=== PATIENT | female | born 1955 | race Caucasian/White ===

== ENCOUNTER 2019-07-16 19:44 | Emergency (ER) | payer MEDICARE, SELFPAY ==
--- NOTE | 2019-07-16 20:10 | ECG_ITS ---
Measurements Intervals [place] Rate: 52 P: 2 [place]: 151 QRS: -7 QRSD: 92 T: -1 QT: 443 QTc: 413 Interpretive Statements SINUS BRADYCARDIA WITH SINUS ARRHYTHMIA BORDERLINE R WAVE PROGRESSION, ANTERIOR LEADS BORDERLINE T WAVE ABNORMALITY- INFERIOR LEADS BASELINE WANDER- III BORDERLINE ECG Electronically Signed On 07-17-2019 7:14:06 CDT by Colt Katz D.O.
--- NOTE | 2019-07-16 20:11 | ED.GENADULT ---
HPI - General Adult General Chief complaint: Psychiatric Symptoms Stated complaint: si Time Seen by Provider: 07/16/19 20:08 Source: patient and EMS Mode of arrival: EMS Limitations: no limitations History of Present Illness HPI narrative: Patient is a 64-year-old female with a history of depression and PTSD who was brought to our facility for suicidal ideation. Per EMS, patient was making statements that she was going to intentionally overdose on her metoprolol, sharp and knife and effort to end her life. At the time of my assessment, patient is tearful, she denies homicidal or suicidal ideation. She denies ever making the statements. She states that she was brought to the emergency department against her will. She states that she feels safe at home, leads many counselor therapy groups, and feels very distraught that she is supposed to be leading a group online right now and is not present to do that since she is here in the hospital. She states that she upset her , and he became belligerent as the current pandemic has heightened her PTSD. Patient denies alcohol use, she states that she took an extra Ativan to dull her anxiety today. Patient denies head, chest or abdominal pain. She reports medical marijuana use, denies other drug use. She has no other complaint other than she feels hungry and thirsty. Related Data Allergies Allergy/AdvReac Type Severity Reaction Status Date / Time Sulfa (Sulfonamide AdvReac Intermediate Itching Verified 04/07/19 16:45 Antibiotics) Review of Systems Review of Systems: Narrative: CONSTITUTIONAL: Denies fever, chills, or sweats. EYES: Denies visual changes, redness, or discharge. ENT: Denies rhinorrhea, congestion, sore throat, or otalgia. CARDIOVASCULAR: Denies chest pain, palpitations, or edema. RESPIRATORY: Denies cough or dyspnea. GASTROINTESTINAL: Denies abdominal pain, nausea, vomiting, or diarrhea. GENITOURINARY: Denies dysuria or hematuria. SKIN: Denies rash or itching. MUSCULOSKELETAL: Denies back pain, joint pain, or myalgia. NEUROLOGIC: Denies headache, numbness, or weakness. PSYCHIATRIC: Reports anxiety and depression, denies homicidal or suicidal ideation PMF Past Medical History Medical History (Updated 07/16/19 @ 22:49 by Peggy Williamson MD) Anxiety Asthma Chronic fatigue Depression Hypertension Lyme disease PTSD (post-traumatic stress disorder) Surgical History Surgical History (Updated 07/16/19 @ 20:33 by Peggy Williamson MD) No pertinent past surgical history Social History Social History (Updated 07/16/19 @ 20:34 by Peggy Williamson MD) Smoking status: Former smoker Alcohol intake: never Substance use: current Substance use type: marijuana Gender identity (if verbalized by the patient): Female Exam Narrative: Exam Narrative: GENERAL: Awake, alert, conversant, tearful HEAD: Normocephalic, atraumatic. EYES: PERRLA and EOMI. ENT: Nares clear, no rhinorrhea or epistaxis. Mucous membranes moist. NECK: Supple. CHEST: No respiratory distress, breathing even and non labored HEART: Regular rate, sinus rhythm ABDOMEN:Non distended, non tender EXTREMITIES: Normal range of motion. No edema. SKIN: Warm, dry, no rash. NEURO:No focal deficits. Alert and oriented x3 Psych: Denies homicidal or suicidal ideation, reports depression, has no plans to kill herself, vomiting diarrhea or to injure others Course Vital Signs Vital signs: Vital Signs Temperature 36.6 C 07/16/19 20:34 Pulse Rate 52 L 07/16/19 20:34 Respiratory Rate 20 07/16/19 20:34 Blood Pressure 134/67 07/16/19 20:34 Pulse Oximetry 97 07/16/19 20:34 Temperature 36.4 C L 07/17/19 03:00 Pulse Rate 70 07/17/19 03:00 Respiratory Rate 18 07/17/19 03:00 Blood Pressure 130/77 07/17/19 03:00 Pulse Oximetry 99 07/17/19 03:00 Transfer Transfered to: [facility] Transportation: [facility] Transfer rationale: Specialty unavailable Accepting physi
--- NOTE | 2019-07-16 20:16 | PC.NURSE ---
Patient's daughter, Noelle, came into facility. Explained that at this time the patient cannot have visitors while we are doing her intake. Noelle cooperative with instructions, gave cell number [phone], and stated she would wait in her car. Daughter also reported that her step father, Luc Tao, is the man that the patient lives with and has had altercations with. Daughter also stated that patient's ex-, Michael, is on his way and will wait in his car. Reports Michael and Caroline have a good, healthy relationship. Explained we will call them with any updates as soon as possible.
[2019-07-16 20:34] VITALS: BP 134/67; PULSE 52; RESP 20; TEMP 36.6; O2SAT 97
[2019-07-16 20:42] LABS: Basophils Absolute Auto 0.1 K/mm3 (0.0-0.1); Basophils Percent Auto 0.5 % (0.2-1.2); Eosinophils Absolute Auto 0.5 K/mm3 (0-0.3); Eosinophils Percent Auto 3.3 % (0-4.4); Hematocrit 46.3 % (37.0-47.0); Hemoglobin 15.3 g/dL (12.0-15.0); Immature Granulocyte Absolute 0.04 K/mm3 (0.00-0.031); Immature Granulocyte Percent A 0.3 % (0-0.5); Lymphocytes Absolute Auto 2.89 K/mm3 (0.9-3.2); Mean Corpuscular Volume 84.8 fl (80-100); Mean Platelet Volume 10.4 fl (7.4-10.4); Monocytes Absolute Auto 0.9 K/mm3 (0.1-0.6); Monocytes Percent Auto 6.3 % (2.6-8.5); Neutrophils Absolute Auto 9.4 K/mm3 (1.3-6.7); Neutrophils Percent Auto 68.6 % (45.5-73.1); Platelet Count Result 284 k/mm3 (150-375); Red Blood Count 5.46 M/mm3 (4.2-5.4); Red Cell Distribution Width 13.8 % (11.5-14.5); White Blood Count 13.7 K/mm3 (4.5-10.0)
--- NOTE | 2019-07-16 20:49 | PC.NURSE ---
Patient's daughter notified she can visit if she would like after speaking with patient and physician. Daughter stated because of the virus I think maybe I'll just wait outside. Explained that the patient can use the hospital line to call her if she wants to talk to her and that I will call her with updates as they come available. Daughter verbalized understanding.
[2019-07-16 20:52] LABS: Add Urine Microscopic? YES; Appearance Urine Clear (Clear); Bacteria Urine Trace /hpf; Bilirubin Urine Negative (Negative); Blood Urine 2+ (Negative); Color Urine Colorless (Yellow); Glucose Urine UA Negative (Negative); Ketones Urine Negative (Negative); Leukocyte Esterase Ur 1+ LEU/UL (Negative); Mucus Urine Rare /lpf; Nitrate Urine Negative (Negative); Protein Urine 1+ mg/dL (Negative); RBC Urine 0-2 /hpf (0-2); Specific Grav Ur 1.006 (1.001-1.035); Squamous Epithelial Cell Urine Few /hpf (Few); Urobilinogen Urine Negative mg/dL (<2.0)
[2019-07-16 20:55] LABS: Acetaminophen < 10 ug/mL (10-30); Ethanol < 10 mg/dL (<10); Salicylate < 1.0 mg/dL (2-20)
[2019-07-16 20:56] LABS: Alanine Aminotransferase 17 U/L (4-35); Albumin Level 4.9 g/dL (3.5-5.1); Alkaline Phosphatase 86 U/L (38-126); Aspartate Amino Transferase 26 U/L (14-36); Bilirubin,Total 0.7 mg/dL (0.2-1.3); Blood Urea Nitrogen 14 mg/dL (7-17); Carbon Dioxide 26 mmol/L (22-30); Chloride 104 mmol/L (98-107); Estimated CRCL calculation 80 ml/min; Estimated Glomerular Filt Rate > 60; Glucose 100 mg/dL (65-105); Potassium 4.2 mmol/L (3.4-5.0); Sodium 140 mmol/L (137-145)
[2019-07-16 21:08] LABS: Amphetamine Screen Urine Negative (Negative); Barbiturate Screen Urine Negative (Negative); Benzodiazepines Screen Urine Negative (Negative); Cannabinoid Screen Urine Negative (Negative); Cocaine Screen Urine Negative (Negative); Methadone Screen Urine Negative (Negative); Opiate Screen Urine Negative (Negative); Phencyclidine Screen Urine Negative (Negative)
--- NOTE | 2019-07-16 21:52 | PC.NURSE ---
Patient called daughter on martinez phone, daughter called the nurses station. Stated, She seems out of it, I'm sorry for the way she's acting. Daughter stated she would go home and will keep her phone on her if patient wants to call back.
--- NOTE | 2019-07-16 23:04 | PC.NURSE ---
psychiatric social worker supervisor here to see pt and at bedside sitter at bedside and report given to Krissy andino
--- NOTE | 2019-07-16 23:05 | PC.NURSE ---
Patient's daughter notified of plan to place patient in inpatient psych care.
--- NOTE | 2019-07-16 23:07 | PC.NURSE ---
Pt back to room from talking on martinez phone. Sitter remains at bedside.
[2019-07-16 23:23] VITALS: BP 128/89; PULSE 75; RESP 18; O2SAT 99
--- NOTE | 2019-07-17 | PC.NURSE ---
pt given 0.5 mg ativan and 50mg metoprolol, which is her hs medications, per md verbal orders. meds given by this rn out of pts home medication bottles brought in by pt.
--- NOTE | 2019-07-17 00:10 | PC.NURSE ---
[facility] called stating they can't accept pt if she isn't voluntary. they state to call back if she becomes voluntary because pt would be accepted then.
--- NOTE | 2019-07-17 00:14 | PC.NURSE ---
pt back to room after being on phone. sitter remains at bedside.
--- NOTE | 2019-07-17 00:19 | PC.NURSE ---
[facility] called to get more info on pt. they are asking this rn to fax over pt info and will give me a call back. notified.
--- NOTE | 2019-07-17 00:46 | PC.NURSE ---
all paperwork faxed over to [facility] at this time.
--- NOTE | 2019-07-17 01:16 | PC.NURSE ---
pt resting in her room at this time. sitter at bedside.
--- NOTE | 2019-07-17 01:41 | PC.NURSE ---
[facility] called this rn to let us know that dr. erazo has accepted pt. jackson from [facility] states a nurse will call within an hour to give report. if they don't call, she states to call her back. [phone]
--- NOTE | 2019-07-17 02:07 | PC.NURSE ---
[facility] called at this time to get pt's social security number for registration. they stated a nurse will be calling me shortly.
--- NOTE | 2019-07-17 02:29 | PC.NURSE ---
Called [facility] to transport patient to [facility]. ETA [phone]
--- NOTE | 2019-07-17 02:29 | PC.NURSE ---
Called [facility] to transport patient to [facility]. Francisco Javier declined. [facility].
--- NOTE | 2019-07-17 02:37 | PC.NURSE ---
Called [facility] to transport patient to [facility]. ETA from Sebast[place].
[2019-07-17 03:00] VITALS: BP 130/77; PULSE 70; RESP 18; TEMP 36.4; O2SAT 99
== END 2019-07-17 03:05 ==
PROVIDERS: Emergency Provider Emergency Medicine; PCP Family Medicine Adolescent Medicine
DX: R45.851 Suicidal ideations (principal); N39.0 Urinary tract infection, site not specified; F41.9 Anxiety disorder, unspecified; F43.10 Post-traumatic stress disorder, unspecified; I10 Essential (primary) hypertension; J45.909 Unspecified asthma, uncomplicated; R00.1 Bradycardia, unspecified; R94.31 Abnormal electrocardiogram [ECG] [EKG]; Z79.899 Other long term (current) drug therapy
CPT/HCPCS: 36415; 80053; 80307; 81001; 81025; 84443; 85025; 87077; 87086; 87088; 93005; 99285

== ENCOUNTER 2020-03-29 06:50 | Outpatient (NON) | payer MEDICARE, SELFPAY ==
[2020-03-29 23:03] LABS: SARS-CoV-2 RNA PCR Negative
== END 2020-03-29 06:51 ==
LOC: ANHCOVIDDT 06:58
PROVIDERS: PCP Family Medicine Adolescent Medicine; Visit Provider Family Medicine Adolescent Medicine
DX: Z20.828 Contact with and (suspected) exposure to other viral communicable diseases (principal); R53.83 Other fatigue; R51.9 Headache, unspecified; R19.7 Diarrhea, unspecified
CPT/HCPCS: 87635; C9803; U0003